=== PATIENT | male | born 1970 | race Caucasian/White ===

== ENCOUNTER → 2017-03-21 | Outpatient (REF) | payer OTHER, MEDICAID ==
[2017-03-21 16:18] LABS: ALBUMIN 3.9 GM/DL (3.2-5.2); ALBUMIN/GLOBULIN RATIO 1.26 (1.00-1.93); ALKALINE PHOSPHATASE 53 U/L (45-117); ALT/SGPT 21 U/L (12-78); ANION GAP 8 MEQ/L (8-16); AST/SGOT 14 U/L (15-37); BILIRUBIN,TOTAL 0.6 MG/DL (0.2-1.0); BLOOD UREA NITROGEN 14 MG/DL (7-18); CALCIUM LEVEL 9.4 MG/DL (8.5-10.1); CARBON DIOXIDE LEVEL 25 MEQ/L (21-32); CHLORIDE LEVEL 104 MEQ/L (98-107); CHOLESTEROL LEVEL 210 MG/DL (<200); CREATININE FOR GFR 0.88 MG/DL (0.70-1.30); GLOMERULAR FILTRATION RATE > 60.0 (>60); GLUCOSE, FASTING 92 MG/DL (70-105); POTASSIUM SERUM 4.2 MEQ/L (3.5-5.1); SODIUM LEVEL 137 MEQ/L (136-145); TRIGLYCERIDES LEVEL 93 MG/DL (<150)
== END ==
LOC: M SFHCLACO 08:59
PROVIDERS: ATTEND Physician Assistant
DX: I10 Essential (primary) hypertension (principal); E78.2 Mixed hyperlipidemia

== ENCOUNTER → 2017-12-13 | Outpatient (CLI) | payer OTHER | LOC: M LRY 14:16 | DX: S82.52XA Displaced fracture of medial malleolus of left tibia, initial encounter for closed fracture (principal); X58.XXXA Exposure to other specified factors, initial encounter; Y93.9 Activity, unspecified; Y92.9 Unspecified place or not applicable | CPT/HCPCS: 73610 ==

== ENCOUNTER → 2017-12-15 | Outpatient (CLI) | payer OTHER | LOC: M EKG 11:47 | DX: Z01.810 Encounter for preprocedural cardiovascular examination (principal) ==

== ENCOUNTER 2017-12-24 06:46 | Emergency (ER) | payer OTHER ==
[2017-12-24] MEDS: PERCOCET 5MG/325MG TAB PO (07:23)
== END 2017-12-24 08:53 | disposition home or self-care (01) ==
LOC: M ED 06:46
DX: Z46.89 Encounter for fitting and adjustment of other specified devices (principal); M79.662 Pain in left lower leg; I10 Essential (primary) hypertension; J45.909 Unspecified asthma, uncomplicated; F17.210 Nicotine dependence, cigarettes, uncomplicated; Z79.899 Other long term (current) drug therapy
CPT/HCPCS: 73600

== ENCOUNTER → 2018-02-08 | Outpatient (REF) | payer BC ==
[2018-02-08 20:24] LABS: ALBUMIN 4.1 GM/DL (3.2-5.2); ALBUMIN/GLOBULIN RATIO 1.17 (1.00-1.93); ALKALINE PHOSPHATASE 60 U/L (45-117); ALT/SGPT 29 U/L (12-78); ANION GAP 10 MEQ/L (8-16); AST/SGOT 15 U/L (7-37); BILIRUBIN,TOTAL 0.7 MG/DL (0.2-1.0); BLOOD UREA NITROGEN 9 MG/DL (7-18); CALCIUM LEVEL 9.3 MG/DL (8.5-10.1); CARBON DIOXIDE LEVEL 26 MEQ/L (21-32); CHLORIDE LEVEL 104 MEQ/L (98-107); CHOLESTEROL LEVEL 248 MG/DL (<200); CREATININE FOR GFR 0.94 MG/DL (0.70-1.30); FREE T4 0.99 NG/DL (0.76-1.46); GLOMERULAR FILTRATION RATE > 60.0 (>60); GLUCOSE, FASTING 94 MG/DL (70-100); HDL CHOLESTEROL 50 MG/DL (>40); LDL CHOLESTEROL 142.6 MG/DL (<100); NON-HDL-C 198 MG/DL; POTASSIUM SERUM 4.6 MEQ/L (3.5-5.1); SODIUM LEVEL 140 MEQ/L (136-145); TOTAL PROTEIN 7.6 GM/DL (6.4-8.2); TRIGLYCERIDES LEVEL 277 MG/DL (<150)
== END ==
LOC: M SFHCADAM 11:10
DX: E78.2 Mixed hyperlipidemia (principal)

== ENCOUNTER → 2019-09-26 | Outpatient (CLI) | payer BC ==
[~2019-09-26] MED LIST: FLUO20TA28 PO; LISI-542 PO; VENTAER IN; ZYRT10CA PO
--- NOTE | 2019-09-26 13:57 | REPVR ---
PROCEDURE INFORMATION: Exam: MR Head Without Contrast Exam date and time: 09/26/2019 12:45 PM Age: 49 years old Clinical indication: Speech disturbance; Patient HX: Occipital QUINTANILLA, slurred speech, unsteady gait TECHNIQUE: Imaging protocol: MR of the head without contrast. COMPARISON: No relevant prior studies available. FINDINGS: Brain: There is a 3 mm focus of low signal abnormality in the high right parietal lobe which may represent a small focus of old hemorrhage, cannot exclude small underlying vascular lesion. Ventricles: Normal. No ventriculomegaly. Bones/joints: Unremarkable. Soft tissues: Unremarkable. Sinuses: Normal as visualized. No acute sinusitis. Mastoid air cells: Normal as visualized. No mastoid effusion. Orbits: Unremarkable. IMPRESSION: No acute intracranial abnormality identified. Please refer to incidental findings in body of report. Electronically signed by: Gabe Alberto On 09/26/2019 13:56:56 PM
== END ==
LOC: M RAD 12:18
PROVIDERS: ATTEND Family Medicine
DX: R51 Headache (principal); R47.81 Slurred speech; R26.89 Other abnormalities of gait and mobility; G93.9 Disorder of brain, unspecified

== ENCOUNTER → 2019-09-26 | Outpatient (REF) | payer BC ==
[2019-09-26 13:21] LABS: HEMATOCRIT 46.1 % (42.0-52.0); HEMOGLOBIN 15.2 g/dl (13.5-17.5); MEAN CORPUSCULAR HEMOGLOBIN 30.7 pg (27.0-33.0); MEAN CORPUSCULAR VOLUME 93.1 fl (80.0-96.0); PLATELET COUNT, AUTOMATED 223 10^3/uL (150-450); RED BLOOD COUNT 4.95 10^6/uL (4.30-6.10)
[2019-09-26 13:28] LABS: ALBUMIN 3.9 GM/DL (3.2-5.2); ALT/SGPT 20 U/L (12-78); BILIRUBIN,TOTAL 0.5 MG/DL (0.2-1.0); BLOOD UREA NITROGEN 19 MG/DL (7-18); CALCIUM LEVEL 9.2 MG/DL (8.5-10.1); CARBON DIOXIDE LEVEL 27 MEQ/L (21-32); CHLORIDE LEVEL 107 MEQ/L (98-107); CHOLESTEROL LEVEL 211 MG/DL (<200); CHOLESTEROL RISK RATIO 5.146 (<5); CREATININE FOR GFR 0.86 MG/DL (0.70-1.30); FREE T4 1.13 NG/DL (0.76-1.46); GLOMERULAR FILTRATION RATE > 60.0 (>56); GLUCOSE, FASTING 107 MG/DL (70-100); HDL CHOLESTEROL 41 MG/DL (>40); LDL CHOLESTEROL 124 MG/DL (<100); NON-HDL-C 170 MG/DL; POTASSIUM SERUM 4.2 MEQ/L (3.5-5.1); SODIUM LEVEL 139 MEQ/L (136-145); THYROID STIMULATING HORMONE 0.284 uIU/ML (0.358-3.740); TRIGLYCERIDES LEVEL 230 MG/DL (<150)
== END ==
LOC: M SFHCADAM 10:36
PROVIDERS: ATTEND Family Medicine
DX: F32.9 Major depressive disorder, single episode, unspecified (principal); E78.2 Mixed hyperlipidemia; Z12.5 Encounter for screening for malignant neoplasm of prostate
CPT/HCPCS: 80053; 80061; 84439; 84443; 85027; G0103

== ENCOUNTER → 2020-07-20 | Outpatient (CLI) | payer SELFPAY | LOC: M LABSMTC 11:27 | PROVIDERS: ATTEND Pediatrics | DX: Z20.828 Contact with and (suspected) exposure to other viral communicable diseases (principal) ==

== ENCOUNTER 2020-08-11 17:28 | Emergency (ER) | payer BC, SELFPAY ==
[~2020-08-11] VITALS: Ht 175.3 cm; Wt 98.5 kg
[2020-08-11] MEDS ORDERED: VITMTA PO (17:43)
[2020-08-11] MEDS ORDERED: KP F1200 PO (17:43)
[2020-08-11 18:31] LABS: BASO # 0.1 10^3/uL (0.0-0.2); BASO % 1.1 % (0.0-1.0); EOS # 0.2 10^3/uL (0.0-0.5); EOS % 2.9 % (0.0-3.0); HEMATOCRIT 47.3 % (42.0-52.0); HEMOGLOBIN 16.3 g/dl (13.5-17.5); LYMPH # 2.8 10^3/uL (1.5-5.0); LYMPH % 38.1 % (24.0-44.0); MEAN CORPUSCULAR HEMOGLOBIN 31.9 pg (27.0-33.0); MEAN CORPUSCULAR HGB CONC 34.5 g/dl (32.0-36.5); MEAN CORPUSCULAR VOLUME 92.6 fl (80.0-96.0); MONO # 0.6 10^3/uL (0.0-0.8); NEUTROPHILS # 3.6 10^3/uL (1.5-8.5); NEUTROPHILS % 49.6 % (36.0-66.0); PLATELET COUNT, AUTOMATED 268 10^3/uL (150-450); RED BLOOD COUNT 5.11 10^6/uL (4.30-6.10); WHITE BLOOD COUNT 7.2 10^3/uL (4.0-10.0)
[2020-08-11 19:05] LABS: BLOOD UREA NITROGEN 18 MG/DL (7-18); CALCIUM LEVEL 8.8 MG/DL (8.5-10.1); CARBON DIOXIDE LEVEL 24 MEQ/L (21-32); CHLORIDE LEVEL 108 MEQ/L (98-107); CK-MB VALUE MASS < 1.0 NG/ML (<3.6); CPK CREATINE PHOSPHOKINASE 100 U/L (39-308); CREATININE FOR GFR 0.96 MG/DL (0.70-1.30); FREE T4 1.12 NG/DL (0.76-1.46); GLOMERULAR FILTRATION RATE > 60.0 (>56); GLUCOSE, FASTING 96 MG/DL (70-100); POTASSIUM SERUM 4.2 MEQ/L (3.5-5.1); SODIUM LEVEL 137 MEQ/L (136-145); THYROID STIMULATING HORMONE 0.353 uIU/ML (0.358-3.740); TROPONIN I < 0.02 NG/ML (< 0.10)
--- NOTE | 2020-08-11 19:06 | REP ---
INDICATION: cough chronic. COMPARISON: PA and lateral chest dated 06/23/2009. TECHNIQUE: Two AP views of the chest performed portably with the patient upright. FINDINGS: The lung barahona are clear. Cardiac size is normal. The margarito, mediastinum and skeletal structures are unremarkable. IMPRESSION: Essentially negative portable chest There is no interval change. <Electronically signed by Edi Trinidad > 08/11/20 [id number]
[2020-08-11 19:51] VITALS: BP 116/72
--- NOTE | 2020-08-12 07:51 | ECGEPIP ---
[facility] - ED Test Date: 2020-08-11 Pat Name: JOAN MCBRIDE Department: Room: - Gender: Male Signwriter: : [id number] Requested By: Sohan Peralta Order Number: [id number] Reading MD: Sohan Whitlock Measurements Intervals [place] Rate: 81 P: 73 KS: 146 QRS: 68 QRSD: 101 T: 58 QT: 345 QTc: 402 Interpretive Statements SINUS RHYTHM MODERATE INTRAVENTRICULAR CONDUCTION DELAY NONSPECIFIC T-WAVE ABNORMALITY SIMILAR TO 12/15/17 Electronically Signed on 08-12-2020 7:51:32 EST by Sohan Whitlock
== END 2020-08-11 19:53 | disposition home or self-care (01) ==
LOC: M ED 17:28
DX: R53.83 Other fatigue (principal); R61 Generalized hyperhidrosis; R51.9 Headache, unspecified; I10 Essential (primary) hypertension; J45.909 Unspecified asthma, uncomplicated; F17.200 Nicotine dependence, unspecified, uncomplicated; Z79.899 Other long term (current) drug therapy
CPT/HCPCS: 71045; 80048; 82550; 82553; 84439; 84443; 84484; 85025; 99284; U0003

== ENCOUNTER → 2020-08-14 | Outpatient (CLI) | payer BC ==
[~2020-08-14] MED LIST changes: +KP F1200 PO; +VITMTA PO
--- NOTE | 2020-08-17 08:51 | ECHO ---
DATE OF PROCEDURE: 08/14/2020 Age: 50 Gender: Male Height: 69 inches Weight: 210 pounds. Body surface area: 2.11 m2 PATIENT LOCATION: Outpatient. REFERRING PHYSICIAN: BENI Fuchs. INDICATION: Chest pain. MEASUREMENTS: 2D Measurements: RV 4.2 cm LV 4.4 cm Septum 1.0 cm Posterior wall 1.0 cm Aortic Root 3.2 cm LA 3.9 cm LVEF 75% Doppler Measurements: AV 1.38 m/s LVOT 1.3 m/s MV-E 80, A 69, E/A ratio 1.2 Early mitral deceleration time 183 msec E prime medial 9.3, A prime medial 9.9, E prime lateral 11.6 Average E/E prime ratio 6.7/PCWP 10.2 mmHg PV 0.8 m/s Pulmonary artery acceleration time 134 msec RVSP 22 mmHg IVC 1.7 cm COMMENTS: Normal sinus rhythm without intraventricular conduction disturbance. M-mode and two-dimensional echocardiography was performed with pulse, continuous wave, color flow, and tissue Doppler studies. Normal left ventricular size, wall thickness, and wall motion. Normal left atrial size and Doppler assessment of LV diastolic function and estimated mean left atrial pressure. Right heart chamber sizes upper limits of normal with normal wall motion and estimated pulmonary arterial pressure. Normal IVC size and collapse against an elevated central venous pressure. Normal aortic dimensions. Marginally thickened three equal size cusps of the aortic valve with normal valvular function. Normal appearing and functioning mitral valve. Normal appearing and functioning tricuspid valve with trace insufficiency. No apparent intracardiac mass or pericardial effusion. Unable to account for the patients chest pain based on this examination. MTDD
== END ==
LOC: M CARPUL 09:14
PROVIDERS: ATTEND Physician Assistant
DX: R07.9 Chest pain, unspecified (principal)

== ENCOUNTER 2020-08-26 10:56 | Emergency (ER) | payer OTHER, BC ==
[~2020-08-26] VITALS: Ht 172.7 cm; Wt 92.8 kg
[2020-08-26] MEDS ORDERED: IBUP-1022 PO (11:12)
--- NOTE | 2020-08-26 11:41 | REP ---
INDICATION: trauma, twisted. COMPARISON: None. TECHNIQUE: AP, lateral, bilateral oblique and sunrise views. FINDINGS: Advanced tricompartmental osteoarthritic degenerative changes and evidence for prior ACL repair noted. No obvious acute fracture or dislocation. Lateral view cannot exclude joint/suprapatellar effusion. IMPRESSION: Advanced degenerative changes. Cannot exclude effusion. No obvious acute fracture. <Electronically signed by Jarrod Holly > 08/26/20 [id number]
[2020-08-26 12:36] VITALS: BP 118/58
== END 2020-08-26 12:49 | disposition home or self-care (01) ==
LOC: M ED 10:56
DX: S83.92XA Sprain of unspecified site of left knee, initial encounter (principal); M25.462 Effusion, left knee; X50.1XXA Overexertion from prolonged static or awkward postures, initial encounter; Y92.89 Other specified places as the place of occurrence of the external cause; Y93.9 Activity, unspecified; Y99.0 Civilian activity done for income or pay; I10 Essential (primary) hypertension; J45.909 Unspecified asthma, uncomplicated; F17.200 Nicotine dependence, unspecified, uncomplicated; Z79.899 Other long term (current) drug therapy

== ENCOUNTER → 2021-04-09 | Outpatient (REF) | payer OTHER ==
[~2021-04-09] MED LIST changes: +FLUTISP; +IBUP-1022 PO; -LISI-542 PO; +LISI-898 PO; +LISI20TA33; +PRED20TA PO
[2021-04-09 18:36] LABS: ALT/SGPT 30 U/L (12-78); BLOOD UREA NITROGEN 12 MG/DL (7-18); CALCIUM LEVEL 9.4 MG/DL (8.5-10.1); CARBON DIOXIDE LEVEL 24 MEQ/L (21-32); CHLORIDE LEVEL 107 MEQ/L (98-107); CHOLESTEROL LEVEL 224 MG/DL (<200); CHOLESTEROL RISK RATIO 3.862 (<5); CREATININE FOR GFR 0.87 MG/DL (0.70-1.30); GLOMERULAR FILTRATION RATE > 60.0 (>56); GLUCOSE, FASTING 84 MG/DL (70-100); HDL CHOLESTEROL 58 MG/DL (>40); LDL CHOLESTEROL 129 MG/DL (<100); NON-HDL-C 166 MG/DL; SODIUM LEVEL 139 MEQ/L (136-145); TOTAL PROTEIN 7.1 GM/DL (6.4-8.2); TRIGLYCERIDES LEVEL 184 MG/DL (<150)
== END ==
LOC: M SFHCADAM 15:54
PROVIDERS: ATTEND Family Medicine
DX: E78.2 Mixed hyperlipidemia (principal); I10 Essential (primary) hypertension; Z12.5 Encounter for screening for malignant neoplasm of prostate

== ENCOUNTER 2021-04-19 07:31 | Emergency (ER) | payer OTHER ==
[~2021-04-19] VITALS: Ht 175.3 cm; Wt 95.9 kg
[~2021-04-19 07:31] MED LIST changes: -FLUTISP; -LISI20TA33; -PRED20TA PO
[2021-04-19] MEDS ORDERED: LISI20TA33 (08:14)
[2021-04-19] MEDS ORDERED: FLUTISP (08:14)
--- NOTE | 2021-04-19 08:59 | REP ---
INDICATION: SOB COMPARISON: 08/11/2020 TECHNIQUE: Portable AP view of the chest FINDINGS: The mediastinum and cardiac silhouette are stable and within normal limits for portable technique. The lung barahona are clear without acute consolidation, effusion, or pneumothorax. Skeletal structures are intact. IMPRESSION: No acute cardiopulmonary process appreciated. <Electronically signed by Jarrod Holly > 04/19/21 [id number]
[2021-04-19] MEDS ORDERED: PRED20TA PO (09:24)
[2021-04-19 10:14] VITALS: BP 113/59
== END 2021-04-19 10:24 | disposition home or self-care (01) ==
LOC: M ED 07:31 → EDBD 07:31 → M ED 10:24
DX: J45.901 Unspecified asthma with (acute) exacerbation (principal); I10 Essential (primary) hypertension; F32.9 Major depressive disorder, single episode, unspecified; F17.200 Nicotine dependence, unspecified, uncomplicated; Z79.899 Other long term (current) drug therapy

== ENCOUNTER → 2021-09-15 | Outpatient (REF) | payer OTHER ==
[~2021-09-15] MED LIST changes: +FLUTISP; -LISI-898 PO; +LISI20TA33; +LISI5TAB11 PO; +PRED20TA PO
[2021-09-15 13:07] LABS: HEMATOCRIT 46.2 % (42.0-52.0); HEMOGLOBIN 15.8 g/dl (13.5-17.5); MEAN CORPUSCULAR HEMOGLOBIN 31.7 pg (27.0-33.0); MEAN CORPUSCULAR HGB CONC 34.2 g/dl (32.0-36.5); MEAN CORPUSCULAR VOLUME 92.6 fl (80.0-96.0); PLATELET COUNT, AUTOMATED 272 10^3/uL (150-450); RED BLOOD COUNT 4.99 10^6/uL (4.30-6.10); WHITE BLOOD COUNT 6.1 10^3/uL (4.0-10.0)
[2021-09-15 14:56] LABS: ALT/SGPT 34 U/L (12-78); BILIRUBIN,TOTAL 0.7 MG/DL (0.2-1.0); BLOOD UREA NITROGEN 14 MG/DL (7-18); CALCIUM LEVEL 9.3 MG/DL (8.5-10.1); CARBON DIOXIDE LEVEL 28 MEQ/L (21-32); CHLORIDE LEVEL 103 MEQ/L (98-107); CHOLESTEROL LEVEL 218 MG/DL (<200); CHOLESTEROL RISK RATIO 3.694 (<5); CREATININE FOR GFR 0.96 MG/DL (0.70-1.30); FREE T4 1.09 NG/DL (0.76-1.46); GLOMERULAR FILTRATION RATE > 60.0 (>56); GLUCOSE, FASTING 101 MG/DL (70-100); HDL CHOLESTEROL 59 MG/DL (>40); LDL CHOLESTEROL 124 MG/DL (<100); NON-HDL-C 159 MG/DL; POTASSIUM SERUM 4.8 MEQ/L (3.5-5.1); SODIUM LEVEL 137 MEQ/L (136-145); THYROID STIMULATING HORMONE 0.228 uIU/ML (0.358-3.740); TRIGLYCERIDES LEVEL 177 MG/DL (<150)
== END ==
LOC: M SFHCADAM 08:46
PROVIDERS: ATTEND Family Medicine
DX: I11.9 Hypertensive heart disease without heart failure (principal); F41.9 Anxiety disorder, unspecified

== ENCOUNTER → 2022-09-14 | Outpatient (REF) | payer OTHER ==
[2022-09-14 17:20] LABS: ALBUMIN 4.1 G/DL (3.2-5.2); ALKALINE PHOSPHATASE 62 U/L (46-116); ALT/SGPT 22 U/L (7.0-40); AST/SGOT 17 U/L (<34); BLOOD UREA NITROGEN 14 MG/DL (9-23); CALCIUM LEVEL 9.9 MG/DL (8.5-10.1); CARBON DIOXIDE LEVEL 28 MMOL/L (20-31); CHLORIDE LEVEL 104 MMOL/L (98-107); CHOLESTEROL LEVEL 243 MG/DL (<200); CREATININE FOR GFR 0.82 MG/DL (0.70-1.30); FREE T4 1.06 NG/DL (0.89-1.76); GLOMERULAR FILTRATION RATE > 60.0 (>56); GLUCOSE, FASTING 89 MG/DL (60-100); HDL CHOLESTEROL 65.6 MG/DL (>40); LDL CHOLESTEROL 139.4 MG/DL (<100); NON-HDL-C 177 MG/DL; POTASSIUM SERUM 4.5 MMOL/L (3.5-5.1); SODIUM LEVEL 138 MMOL/L (136-145); THYROID STIMULATING HORMONE 0.231 uIU/ML (0.55-4.78); TRIGLYCERIDES LEVEL 190 MG/DL (<150)
== END ==
LOC: M SFHCADAM 11:34
PROVIDERS: ATTEND Family Medicine
DX: I11.9 Hypertensive heart disease without heart failure (principal); F41.9 Anxiety disorder, unspecified; E78.2 Mixed hyperlipidemia; Z12.5 Encounter for screening for malignant neoplasm of prostate

== ENCOUNTER → 2022-10-25 | Outpatient (CLI) | payer OTHER | LOC: M RAD 13:24 | PROVIDERS: ATTEND Family Medicine | DX: Z12.2 Encounter for screening for malignant neoplasm of respiratory organs (principal); F17.209 Nicotine dependence, unspecified, with unspecified nicotine-induced disorders ==

== ENCOUNTER 2023-01-20 11:32 | Day surgery (SDC) | payer OTHER ==
[~2023-01-20] VITALS: Ht 175.3 cm; Wt 87.2 kg
[~2023-01-20 11:32] MED LIST changes: +CETI-24 PO; +FLUO10CA18 PO; +FLUT50SP17; -FLUTISP; +LIDOCAINE 2% 100MG/5ML SDV (FOR ANES.) As Ordered ONE; -LISI20TA33; +LISI20TA33 PO; +NS 1,000 ML IV ONE; +OMEP40CA5 PO; +fentaNYL 100 MCG/2 ML INJECTION As Ordered ONE; +propofoL 200 MG/20 ML VIAL As Ordered ONE
[2023-01-20] MEDS ORDERED: propofoL 200 MG/20 ML VIAL As Ordered ONE (12:32)
[2023-01-20 13:00] VITALS: BP 117/71; O2SAT 94
[2023-02-14] MEDS ORDERED: FISH1CAP26 FT (10:15)
== END 2023-01-20 13:14 | disposition home or self-care (01) ==
LOC: M OPP 11:32
PROVIDERS: ATTEND Internal Medicine Gastroenterology
DX: K22.70 Barrett's esophagus without dysplasia (principal); K22.2 Esophageal obstruction; K29.70 Gastritis, unspecified, without bleeding; F17.200 Nicotine dependence, unspecified, uncomplicated; Z79.51 Long term (current) use of inhaled steroids; Z79.899 Other long term (current) drug therapy
CPT/HCPCS: 43239; 88305; J3010

== ENCOUNTER → 2023-04-21 | Outpatient (CLI) | payer OTHER ==
[~2023-04-21] MED LIST changes: +FISH1CAP26 FT; -LIDOCAINE 2% 100MG/5ML SDV (FOR ANES.) As Ordered ONE; -NS 1,000 ML IV ONE; +OMEG10002 PO; -fentaNYL 100 MCG/2 ML INJECTION As Ordered ONE; -propofoL 200 MG/20 ML VIAL As Ordered ONE
== END ==
LOC: M ONCR 14:50
PROVIDERS: ATTEND General Practice
DX: C15.5 Malignant neoplasm of lower third of esophagus (principal); Z71.6 Tobacco abuse counseling; F17.210 Nicotine dependence, cigarettes, uncomplicated; Z79.51 Long term (current) use of inhaled steroids; Z79.899 Other long term (current) drug therapy; Z71.2 Person consulting for explanation of examination or test findings

== ENCOUNTER → 2023-04-24 | Outpatient (CLI) | payer OTHER ==
[~2023-04-24] VITALS: Ht 175.3 cm; Wt 86.8 kg
[~2023-04-24] MED LIST changes: +LIDOCAINE W/EPINEPHRINE 1% 20ML VIAL As Ordered ONE; +MIDAZOLAM INJ 2MG/2ML VIAL As Ordered ONE; +NS 1,000 ML IV SCH; +ceFAZolin 2 GM/D5W 50 ML IV BAG As Ordered ONE; +ceFAZolin SOD 2 GM in IV 1 EA IV ONE; +fentaNYL 100 MCG/2 ML INJECTION As Ordered ONE
[2023-04-24 07:15] VITALS: TEMP 98.6
[2023-04-24 11:05] VITALS: BP 109/59; O2SAT 97
== END ==
LOC: M IRPRO 06:53
PROVIDERS: ATTEND Specialist
DX: C15.9 Malignant neoplasm of esophagus, unspecified (principal)
CPT/HCPCS: 36561; 99152; 99153; J0690; J2250; J3010

== ENCOUNTER → 2023-06-27 | Outpatient (RCR) | payer OTHER ==
[~2023-06-27] MED LIST changes: +LIDO30CR18 TOP; -LIDOCAINE W/EPINEPHRINE 1% 20ML VIAL As Ordered ONE; +LORA1TAB23 PO; -MIDAZOLAM INJ 2MG/2ML VIAL As Ordered ONE; -NS 1,000 ML IV SCH; +ONDA-84 PO; +PROC10TA5 PO; -ceFAZolin 2 GM/D5W 50 ML IV BAG As Ordered ONE; -ceFAZolin SOD 2 GM in IV 1 EA IV ONE; -fentaNYL 100 MCG/2 ML INJECTION As Ordered ONE
== END ==
LOC: M ONCR 05-29 08:54
PROVIDERS: ATTEND General Practice
DX: Z51.0 Encounter for antineoplastic radiation therapy (principal); C15.5 Malignant neoplasm of lower third of esophagus

== ENCOUNTER 2023-07-01 18:05 | Inpatient (IN) | payer OTHER ==
[~2023-07-01] VITALS: Ht 175.3 cm; Wt 80.1 kg
[2023-07-01 19:11] LABS: BASO % 0.6 % (0.0-1.0); EOS % 1.9 % (0.0-3.0); HEMATOCRIT 34.8 % (42.0-52.0); HEMOGLOBIN 12.4 g/dl (13.5-17.5); LYMPH # 0.2 10^3/uL (1.5-5.0); LYMPH % 12.4 % (24.0-44.0); MEAN CORPUSCULAR HEMOGLOBIN 32.2 pg (27.0-33.0); MEAN CORPUSCULAR HGB CONC 35.6 g/dl (32.0-36.5); MEAN CORPUSCULAR VOLUME 90.4 fl (80.0-96.0); MONO # 0.2 10^3/uL (0.0-0.8); MONO % 10.6 % (2.0-8.0); NEUTROPHILS # 1.2 10^3/uL (1.5-8.5); NEUTROPHILS % 73.9 % (36.0-66.0); PLATELET COUNT, AUTOMATED 134 10^3/uL (150-450); RED BLOOD COUNT 3.85 10^6/uL (4.30-6.10); WHITE BLOOD COUNT 1.6 10^3/uL (4.0-10.0)
[2023-07-01 19:35] LABS: BLOOD UREA NITROGEN 12 MG/DL (9-23); CALCIUM LEVEL 7.9 MG/DL (8.5-10.1); CARBON DIOXIDE LEVEL 22 MMOL/L (20-31); CHLORIDE LEVEL 102 MMOL/L (98-107); CREATININE FOR GFR 0.57 MG/DL (0.70-1.30); GLOMERULAR FILTRATION RATE > 60.0 (>56); GLUCOSE, FASTING 96 MG/DL (60-100); MAGNESIUM LEVEL 1.9 MG/DL (1.8-2.4); POTASSIUM SERUM 4.1 MMOL/L (3.5-5.1); SODIUM LEVEL 133 MMOL/L (136-145)
[2023-07-01 19:38] LABS: FREE T4 1.07 NG/DL (0.89-1.76); THYROID STIMULATING HORMONE 0.117 uIU/ML (0.55-4.78)
[2023-07-01] MEDS ORDERED: LORA1TAB23 PO (20:33)
[2023-07-01] MEDS ORDERED: HOME MED LIST COMPLETE! XX SCH (20:35)
[2023-07-01 20:36] LABS: RSV AMPLIFICATION NEGATIVE (NEGATIVE)
[2023-07-01] MEDS ORDERED: LORazepam 1 MG TAB PO PRN (22:40)
[2023-07-01] MEDS ORDERED: EMLA CREAM 5GM TUBE (LIDOCAINE/PRILOCAINE) TOP SCH (22:40)
[2023-07-01] MEDS ORDERED: MOM 30ML SUSPENSION UDC PO PRN (22:40)
[2023-07-01] MEDS ORDERED: ALBUTEROL 90 MCG/ACT 8GM HFA INHALER INH PRN (22:40)
[2023-07-01] MEDS ORDERED: ACETAMINOPHEN TAB 650MG DOSE (2X325MG) PO PRN (22:40)
[2023-07-01] MEDS ORDERED: MAALOX 30 ML SUSP *UDC PO PRN (22:40)
[2023-07-01] MEDS ORDERED: FLUTICASONE PROP 0.05% NASAL SPRAY 16 GM (FLONASE) PRN (22:40)
[2023-07-01] MEDS ORDERED: NS 1,000 ML IV SCH (22:50)
[2023-07-01] MEDS ORDERED: MIRALAX *UNIT DOSE* 17GM PACKET PO PRN (23:30)
[2023-07-01] MEDS: ONDANSETRON 4MG TAB PO SCH (23:55)
[2023-07-02] MEDS: PROCHLORPERAZINE 5MG TAB PO SCH ×2 (00:01→06:39)
[2023-07-02 00:30] VITALS: BP 125/75; TEMP 98.2; O2SAT 97
[2023-07-02 05:30] VITALS: BP_SYST 102; BP_SYST 92; BP_DIAS 63; BP_DIAS 65; TEMP 98.2; O2SAT 93
[2023-07-02 05:50] VITALS: BP 102/64
[2023-07-02 06:00] LABS: BASO % 1.4 % (0.0-1.0); EOS % 2.2 % (0.0-3.0); HEMATOCRIT 33.2 % (42.0-52.0); LYMPH # 0.3 10^3/uL (1.5-5.0); MEAN CORPUSCULAR HEMOGLOBIN 32.7 pg (27.0-33.0); MEAN CORPUSCULAR HGB CONC 36.1 g/dl (32.0-36.5); MEAN CORPUSCULAR VOLUME 90.5 fl (80.0-96.0); MONO # 0.2 10^3/uL (0.0-0.8); MONO % 11.5 % (2.0-8.0); NEUTROPHILS % 65.5 % (36.0-66.0); PLATELET COUNT, AUTOMATED 119 10^3/uL (150-450); RED BLOOD COUNT 3.67 10^6/uL (4.30-6.10); WHITE BLOOD COUNT 1.4 10^3/uL (4.0-10.0)
[2023-07-02] MEDS ORDERED: HEPARIN SOD (PORCINE) 5000UNITS/ML 1ML VIAL/SYRINGE SC SCH (06:00)
[2023-07-02 06:23] LABS: ALBUMIN 2.9 G/DL (3.2-5.2); ALKALINE PHOSPHATASE 72 U/L (46-116); ALT/SGPT 18 U/L (7.0-40); AST/SGOT 15 U/L (<34); BILIRUBIN,TOTAL 0.6 MG/DL (0.3-1.2); BLOOD UREA NITROGEN 10 MG/DL (9-23); CALCIUM LEVEL 8.3 MG/DL (8.5-10.1); CARBON DIOXIDE LEVEL 24 MMOL/L (20-31); CHLORIDE LEVEL 102 MMOL/L (98-107); CREATININE FOR GFR 0.57 MG/DL (0.70-1.30); GLOMERULAR FILTRATION RATE > 60.0 (>56); GLUCOSE, FASTING 94 MG/DL (60-100); MAGNESIUM LEVEL 1.9 MG/DL (1.8-2.4); SODIUM LEVEL 133 MMOL/L (136-145); TOTAL PROTEIN 5.6 G/DL (5.7-8.2)
[2023-07-02 06:25] LABS: NEUTROPHILS # 0.9 10^3/uL (1.5-8.5)
[2023-07-02] MEDS ORDERED: NS 1,000 ML IV ONE (08:15)
[2023-07-02] MEDS ORDERED: LISI5TAB11 PO ×2 (08:40→08:42)
[2023-07-02] MEDS ORDERED: SELF1KIT MC (08:41)
[2023-07-02 09:00] VITALS: BP 101/66
[2023-07-02] MEDS ORDERED: MULTIVITAMINS/MINERALS THERAP 1 TAB PO SCH (09:00)
[2023-07-02] MEDS ORDERED: FLUoxetine 10 MG CAP PO SCH (09:00)
[2023-07-02] MEDS ORDERED: CETIRIZINE (ZyrTEC) 10 MG TAB PO SCH (09:00)
[2023-07-02] MEDS ORDERED: OMEGA-3 1000MG CAPSULE PO SCH (09:00)
[2023-07-02] MEDS: ONDANSETRON 4MG TAB PO SCH (09:21)
[2023-07-02 10:27] VITALS: BP 112/67
== END 2023-07-02 10:44 | disposition home or self-care (01) | DRG 422 ==
LOC: M ED 18:05 → M ED INP 22:58 → ENRESERV 23:48 → M MSPAV 07-02 00:32
PROVIDERS: ADMIT Family Medicine; ATTEND General Practice
DX: E86.0 Dehydration (principal); C15.9 Malignant neoplasm of esophagus, unspecified; D61.810 Antineoplastic chemotherapy induced pancytopenia; E87.1 Hypo-osmolality and hyponatremia; I10 Essential (primary) hypertension; K59.00 Constipation, unspecified; R53.1 Weakness; E07.9 Disorder of thyroid, unspecified; E78.5 Hyperlipidemia, unspecified; J45.909 Unspecified asthma, uncomplicated; F32.A Depression, unspecified; F41.9 Anxiety disorder, unspecified; Z87.891 Personal history of nicotine dependence; Z79.899 Other long term (current) drug therapy; Z20.822 Contact with and (suspected) exposure to COVID-19

== ENCOUNTER 2023-07-03 08:24 | Outpatient (RCR) | payer OTHER ==
[~2023-07-03 08:24] MED LIST changes: +SELF1KIT MC
[2023-07-08] MEDS ORDERED: LIDO15SO2 PO (08:43)
== END 2023-07-27 ==
LOC: M ONCR 08:24
PROVIDERS: ATTEND General Practice
DX: Z51.0 Encounter for antineoplastic radiation therapy (principal); C15.5 Malignant neoplasm of lower third of esophagus

== ENCOUNTER → 2023-07-06 | Outpatient (REF) | payer OTHER ==
[2023-07-06 13:59] LABS: BASO % 1.3 % (0.0-1.0); EOS % 1.3 % (0.0-3.0); HEMATOCRIT 32.8 % (42.0-52.0); HEMOGLOBIN 11.5 g/dl (13.5-17.5); LYMPH # 0.5 10^3/uL (1.5-5.0); LYMPH % 22.8 % (24.0-44.0); MEAN CORPUSCULAR HEMOGLOBIN 32.3 pg (27.0-33.0); MEAN CORPUSCULAR HGB CONC 35.1 g/dl (32.0-36.5); MEAN CORPUSCULAR VOLUME 92.1 fl (80.0-96.0); MONO # 0.3 10^3/uL (0.0-0.8); MONO % 12.7 % (2.0-8.0); NEUTROPHILS # 1.4 10^3/uL (1.5-8.5); NEUTROPHILS % 61.5 % (36.0-66.0); PLATELET COUNT, AUTOMATED 179 10^3/uL (150-450); RED BLOOD COUNT 3.56 10^6/uL (4.30-6.10); WHITE BLOOD COUNT 2.3 10^3/uL (4.0-10.0)
[2023-07-06 14:09] LABS: BLOOD UREA NITROGEN 11 MG/DL (9-23); CALCIUM LEVEL 8.8 MG/DL (8.5-10.1); CARBON DIOXIDE LEVEL 26 MMOL/L (20-31); CHLORIDE LEVEL 101 MMOL/L (98-107); CREATININE FOR GFR 0.75 MG/DL (0.70-1.30); GLOMERULAR FILTRATION RATE > 60.0 (>56); GLUCOSE, FASTING 97 MG/DL (60-100); IRON (FE) 41 UG/DL (65-175); PERCENT SATURATION 15.8 % (19.7-50.0); POTASSIUM SERUM 4.4 MMOL/L (3.5-5.1); SODIUM LEVEL 135 MMOL/L (136-145); TOTAL IRON BINDING CAPACITY 259 UG/DL (250-425)
[2023-07-06 14:13] LABS: FOLATE > 24.0 NG/ML (>5.4); VITAMIN B12 LEVEL 1722 PG/ML (211-911)
== END ==
LOC: M SFHCADAM 08:36
PROVIDERS: ATTEND Physician Assistant
DX: D64.81 Anemia due to antineoplastic chemotherapy (principal)

== ENCOUNTER → 2023-08-02 | Outpatient (CLI) | payer OTHER ==
[~2023-08-02] MED LIST changes: -FLUT50SP17; +FLUTISP; +LIDO15SO2 PO; +TRAZ-252 PO
== END ==
LOC: M ONCR 10:06
PROVIDERS: ATTEND General Practice
DX: Z01.818 Encounter for other preprocedural examination (principal); C15.5 Malignant neoplasm of lower third of esophagus; G47.00 Insomnia, unspecified

== ENCOUNTER → 2023-11-03 | Outpatient (CLI) | payer OTHER ==
[~2023-11-03] MED LIST changes: -LIDO15SO2 PO; +LIDO15SO9 PO; +THERTAB19 PO
== END ==
LOC: M ONCR 08:49
PROVIDERS: ATTEND General Practice
DX: C15.5 Malignant neoplasm of lower third of esophagus (principal); F17.210 Nicotine dependence, cigarettes, uncomplicated; Z71.2 Person consulting for explanation of examination or test findings; Z79.51 Long term (current) use of inhaled steroids; Z79.620 Long term (current) use of immunosuppressive biologic; Z79.899 Other long term (current) drug therapy; Z90.49 Acquired absence of other specified parts of digestive tract; Z92.21 Personal history of antineoplastic chemotherapy; Z92.3 Personal history of irradiation

== ENCOUNTER → 2024-02-14 | Outpatient (REF) | payer OTHER ==
[~2024-02-14] MED LIST changes: +FLUO-290 PO; -FLUO10CA18 PO; +HYDR-3713 PO
[2024-02-14 19:09] LABS: HEMATOCRIT 36.7 % (42.0-52.0); HEMOGLOBIN 12.3 g/dl (13.5-17.5); MEAN CORPUSCULAR HEMOGLOBIN 31.5 pg (27.0-33.0); MEAN CORPUSCULAR HGB CONC 33.5 g/dl (32.0-36.5); MEAN CORPUSCULAR VOLUME 93.9 fl (80.0-96.0); PLATELET COUNT, AUTOMATED 324 10^3/uL (150-450); RED BLOOD COUNT 3.91 10^6/uL (4.30-6.10); WHITE BLOOD COUNT 8.8 10^3/uL (4.0-10.0)
[2024-02-14 19:12] LABS: ALBUMIN 3.4 G/DL (3.2-5.2); ALKALINE PHOSPHATASE 85 U/L (46-116); ALT/SGPT 15 U/L (7.0-40); AST/SGOT 11 U/L (<34); BILIRUBIN,TOTAL 0.5 MG/DL (0.3-1.2); BLOOD UREA NITROGEN 22 MG/DL (9-23); CALCIUM LEVEL 9.4 MG/DL (8.5-10.1); CARBON DIOXIDE LEVEL 27 MMOL/L (20-31); CHLORIDE LEVEL 105 MMOL/L (98-107); CHOLESTEROL LEVEL 150 MG/DL (<200); CHOLESTEROL RISK RATIO 3.12 (<5); CREATININE FOR GFR 1.11 MG/DL (0.70-1.30); GLOMERULAR FILTRATION RATE > 60.0 (>56); GLUCOSE, FASTING 73 MG/DL (60-100); POTASSIUM SERUM 4.4 MMOL/L (3.5-5.1); SODIUM LEVEL 138 MMOL/L (136-145); TOTAL PROTEIN 6.9 G/DL (5.7-8.2); TRIGLYCERIDES LEVEL 95 MG/DL (<150)
[2024-02-14 19:16] LABS: FREE T4 1.03 NG/DL (0.89-1.76); THYROID STIMULATING HORMONE 0.115 uIU/ML (0.55-4.78)
== END ==
LOC: M SFHCADAM 13:20
PROVIDERS: ATTEND Family Medicine
DX: I11.9 Hypertensive heart disease without heart failure (principal); C15.9 Malignant neoplasm of esophagus, unspecified; E78.2 Mixed hyperlipidemia

== ENCOUNTER → 2024-02-26 | Outpatient (CLI) | payer OTHER ==
[~2024-02-26] MED LIST changes: +GASTROGRAFIN SOLUTION 30ML As Ordered ONE; +ISOVUE-370 76% 100ML VIAL As Ordered ONE
== END ==
LOC: M RAD 09:08
PROVIDERS: ATTEND Specialist
DX: C15.9 Malignant neoplasm of esophagus, unspecified (principal)
CPT/HCPCS: 71260; 74177; Q9963; Q9967

== ENCOUNTER 2024-02-28 00:52 | Emergency (ER) | payer OTHER ==
[~2024-02-28] VITALS: Ht 175.3 cm; Wt 75.4 kg
[~2024-02-28 00:52] MED LIST changes: -GASTROGRAFIN SOLUTION 30ML As Ordered ONE; -ISOVUE-370 76% 100ML VIAL As Ordered ONE
[2024-02-28] MEDS: NS 1,000 ML IV ONE ×2 (01:50→03:40)
[2024-02-28 02:08] LABS: VENOUS BASE EXCESS 0.8 (-2.0-2.0); VENOUS HCO3 22.6 MMOL/L (23.0-27.0); VENOUS O2 SATURATION 97.1 % (60.0-80.0); VENOUS PARTIAL PRESSURE CO2 28.2 mmHg (38.0-50.0); VENOUS PARTIAL PRESSURE O2 83.3 mmHg (30.0-50.0); VENOUS PH 7.522 UNITS (7.330-7.430); VENOUS STANDARD HCO3 25.2 MMOL/L; VENOUS TOTAL CO2 23.5 MMOL/L (24.0-28.0)
[2024-02-28 02:14] LABS: BASO # 0.1 10^3/uL (0.0-0.2); BASO % 0.9 % (0.0-1.0); EOS # 0.2 10^3/uL (0.0-0.5); EOS % 1.6 % (0.0-3.0); HEMATOCRIT 33.6 % (42.0-52.0); LYMPH # 0.7 10^3/uL (1.5-5.0); LYMPH % 7.4 % (24.0-44.0); MEAN CORPUSCULAR HEMOGLOBIN 31.6 pg (27.0-33.0); MEAN CORPUSCULAR HGB CONC 35.7 g/dl (32.0-36.5); MEAN CORPUSCULAR VOLUME 88.4 fl (80.0-96.0); MONO # 0.9 10^3/uL (0.0-0.8); MONO % 9.7 % (2.0-8.0); NEUTROPHILS # 7.3 10^3/uL (1.5-8.5); NEUTROPHILS % 80.1 % (36.0-66.0); PLATELET COUNT, AUTOMATED 299 10^3/uL (150-450); WHITE BLOOD COUNT 9.1 10^3/uL (4.0-10.0)
[2024-02-28 02:26] LABS: INR 1.16; PARTIAL THROMBOPLASTIN TIME 36.2 SECONDS (24.8-34.2); PROTHROMBIN TIME 14.5 SECONDS (12.5-14.5)
[2024-02-28 02:42] LABS: C REACTIVE PROTEIN QUANTITATIV 12.8 MG/DL (<1.0)
[2024-02-28 02:44] LABS: ALBUMIN 3.2 G/DL (3.2-5.2); BILIRUBIN,DIRECT 0.3 MG/DL (<0.4); CALCIUM LEVEL 8.9 MG/DL (8.5-10.1); CREATININE FOR GFR 1.34 MG/DL (0.70-1.30); GLOMERULAR FILTRATION RATE 58.7 (>56); POTASSIUM SERUM 3.6 MMOL/L (3.5-5.1); TOTAL PROTEIN 6.4 G/DL (5.7-8.2)
[2024-02-28 03:07] VITALS: TEMP 100.3
[2024-02-28 03:31] LABS: APPEARANCE, URINE CLEAR (CLEAR); BACTERIA, URINE AUTO NEGATIVE (NEGATIVE); BILIRUBIN, URINE AUTO NEGATIVE (NEGATIVE); BLOOD, URINE BLOOD NEGATIVE (NEGATIVE); COLOR, URINE YELLOW (YELLOW); GLUCOSE, URINE (UA) AUTO NEGATIVE (NEGATIVE); KETONE, URINE AUTO NEGATIVE (NEGATIVE); LEUKOCYTE ESTERASE, URINE AUTO 3+ (NEGATIVE); NITRITE, URINE AUTO NEGATIVE (NEGATIVE); PROTEIN, URINE AUTO 1+ mg/dL (NEGATIVE); RBC, URINE AUTO 3 /HPF (0-3); SPECIFIC GRAVITY URINE AUTO 1.009 (1.002-1.035); SQUAMOUS EPITHELIAL CELL UR AU 0 /HPF (0-6); UROBILINOGEN, URINE AUTO 0.2 mg/dL (0.0-2.0); WBC, URINE AUTO 50 /HPF (0-3)
[2024-02-28 03:58] LABS: PROCALCITONIN 0.45 ng/ml
[2024-02-28 04:30] VITALS: BP 122/67
[2024-02-28 04:45] VITALS: O2SAT 98
== END 2024-02-28 05:09 | disposition home or self-care (01) ==
LOC: M ED 00:52
DX: R50.9 Fever, unspecified (principal); R53.1 Weakness; E86.0 Dehydration; N17.9 Acute kidney failure, unspecified; I10 Essential (primary) hypertension; C15.9 Malignant neoplasm of esophagus, unspecified; Z79.52 Long term (current) use of systemic steroids; Z79.811 Long term (current) use of aromatase inhibitors; Z79.83 Long term (current) use of bisphosphonates; Z79.899 Other long term (current) drug therapy

== ENCOUNTER → 2024-03-26 | Outpatient (REF) | payer OTHER ==
[2024-03-26 14:24] LABS: BASO # 0.1 10^3/uL (0.0-0.2); BASO % 1.4 % (0.0-1.0); EOS # 0.2 10^3/uL (0.0-0.5); EOS % 2.6 % (0.0-3.0); HEMATOCRIT 37.4 % (42.0-52.0); HEMOGLOBIN 12.5 g/dl (13.5-17.5); LYMPH # 1.8 10^3/uL (1.5-5.0); MEAN CORPUSCULAR HEMOGLOBIN 30.6 pg (27.0-33.0); MEAN CORPUSCULAR HGB CONC 33.4 g/dl (32.0-36.5); MEAN CORPUSCULAR VOLUME 91.7 fl (80.0-96.0); MONO # 0.6 10^3/uL (0.0-0.8); MONO % 8.1 % (2.0-8.0); NEUTROPHILS # 4.9 10^3/uL (1.5-8.5); NEUTROPHILS % 64.4 % (36.0-66.0); PLATELET COUNT, AUTOMATED 322 10^3/uL (150-450); RED BLOOD COUNT 4.08 10^6/uL (4.30-6.10); WHITE BLOOD COUNT 7.7 10^3/uL (4.0-10.0)
[2024-03-26 14:31] LABS: ALBUMIN 3.6 G/DL (3.2-5.2); ALKALINE PHOSPHATASE 87 U/L (46-116); ALT/SGPT 28 U/L (7.0-40); AST/SGOT 16 U/L (<34); BILIRUBIN,TOTAL 0.5 MG/DL (0.3-1.2); BLOOD UREA NITROGEN 23 MG/DL (9-23); CALCIUM LEVEL 9.6 MG/DL (8.5-10.1); CARBON DIOXIDE LEVEL 24 MMOL/L (20-31); CHLORIDE LEVEL 103 MMOL/L (98-107); CREATININE FOR GFR 1.12 MG/DL (0.70-1.30); GLOMERULAR FILTRATION RATE > 60.0 (>56); GLUCOSE, FASTING 110 MG/DL (60-100); POTASSIUM SERUM 4.5 MMOL/L (3.5-5.1); SODIUM LEVEL 133 MMOL/L (136-145); TOTAL PROTEIN 7.1 G/DL (5.7-8.2)
[2024-03-26 14:32] LABS: FREE T4 1.09 NG/DL (0.89-1.76); THYROID STIMULATING HORMONE 0.398 uIU/ML (0.55-4.78)
[2024-03-26 14:33] LABS: FREE T3 3.2 PG/ML (2.3-4.2)
== END ==
LOC: M LABDRWAD 13:57
PROVIDERS: ATTEND Specialist
DX: C15.9 Malignant neoplasm of esophagus, unspecified (principal)

== ENCOUNTER → 2024-05-02 | Outpatient (REF) | payer OTHER ==
[~2024-05-02] MED LIST changes: +POTA50TAB PO
[2024-05-02 17:56] LABS: BASO # 0.1 10^3/uL (0.0-0.2); BASO % 1.5 % (0.0-1.0); EOS # 0.3 10^3/uL (0.0-0.5); EOS % 7.1 % (0.0-3.0); HEMATOCRIT 34.6 % (42.0-52.0); LYMPH # 1.7 10^3/uL (1.5-5.0); LYMPH % 36.1 % (24.0-44.0); MEAN CORPUSCULAR HEMOGLOBIN 32.6 pg (27.0-33.0); MEAN CORPUSCULAR HGB CONC 34.7 g/dl (32.0-36.5); MONO # 0.4 10^3/uL (0.0-0.8); MONO % 8.7 % (2.0-8.0); NEUTROPHILS # 2.2 10^3/uL (1.5-8.5); NEUTROPHILS % 46.2 % (36.0-66.0); PLATELET COUNT, AUTOMATED 282 10^3/uL (150-450); RED BLOOD COUNT 3.68 10^6/uL (4.30-6.10); WHITE BLOOD COUNT 4.8 10^3/uL (4.0-10.0)
[2024-05-02 18:03] LABS: ALBUMIN 3.9 G/DL (3.2-5.2); ALKALINE PHOSPHATASE 73 U/L (46-116); ALT/SGPT 32 U/L (7.0-40); AST/SGOT 23 U/L (<34); BILIRUBIN,TOTAL 0.7 MG/DL (0.3-1.2); BLOOD UREA NITROGEN 12 MG/DL (9-23); CALCIUM LEVEL 8.6 MG/DL (8.5-10.1); CARBON DIOXIDE LEVEL 24 MMOL/L (20-31); CHLORIDE LEVEL 107 MMOL/L (98-107); CREATININE FOR GFR 0.91 MG/DL (0.70-1.30); GLOMERULAR FILTRATION RATE > 60.0 (>56); GLUCOSE, FASTING 82 MG/DL (60-100); IRON (FE) 75 UG/DL (65-175); MAGNESIUM LEVEL 1.7 MG/DL (1.8-2.4); PERCENT SATURATION 24.3 % (19.7-50.0); POTASSIUM SERUM 3.9 MMOL/L (3.5-5.1); SODIUM LEVEL 136 MMOL/L (136-145); TOTAL IRON BINDING CAPACITY 309 UG/DL (250-425); TOTAL PROTEIN 6.6 G/DL (5.7-8.2)
[2024-05-02 18:05] LABS: FERRITIN 264.7 NG/ML (10.5-307.3); FREE T3 3.1 PG/ML (2.3-4.2); FREE T4 1.21 NG/DL (0.89-1.76)
[2024-05-02 18:06] LABS: FOLATE 23.33 NG/ML (>5.4)
[2024-05-03 12:18] LABS: PHOSPHORUS LEVEL 1.3 MG/DL (2.5-4.9)
[2024-05-07 15:27] LABS: Methylmalonic Acid 145 nmol/L (55-335)
== END ==
LOC: M LABDRWAD 17:03
PROVIDERS: ATTEND Specialist
DX: C15.9 Malignant neoplasm of esophagus, unspecified (principal)

== ENCOUNTER → 2024-06-03 | Outpatient (REF) | payer OTHER ==
[2024-06-03 14:55] LABS: ALBUMIN 3.9 G/DL (3.2-5.2); ALKALINE PHOSPHATASE 71 U/L (46-116); ALT/SGPT 15 U/L (7.0-40); AST/SGOT 10 U/L (<34); BILIRUBIN,TOTAL 0.8 MG/DL (0.3-1.2); BLOOD UREA NITROGEN 13 MG/DL (9-23); CALCIUM LEVEL 8.9 MG/DL (8.5-10.1); CARBON DIOXIDE LEVEL 22 MMOL/L (20-31); CHLORIDE LEVEL 109 MMOL/L (98-107); CREATININE FOR GFR 0.81 MG/DL (0.70-1.30); GLOMERULAR FILTRATION RATE > 60.0 (>56); GLUCOSE, FASTING 82 MG/DL (60-100); POTASSIUM SERUM 3.7 MMOL/L (3.5-5.1); SODIUM LEVEL 136 MMOL/L (136-145); TOTAL PROTEIN 6.7 G/DL (5.7-8.2)
[2024-06-03 14:58] LABS: FREE T3 3.8 PG/ML (2.3-4.2); THYROID STIMULATING HORMONE 0.042 uIU/ML (0.55-4.78)
[2024-06-03 14:59] LABS: FREE T4 1.24 NG/DL (0.89-1.76)
[2024-06-03 15:17] LABS: BASO # 0.1 10^3/uL (0.0-0.2); BASO % 1.3 % (0.0-1.0); EOS # 0.3 10^3/uL (0.0-0.5); EOS % 4.7 % (0.0-3.0); HEMATOCRIT 37.1 % (42.0-52.0); HEMOGLOBIN 12.6 g/dl (13.5-17.5); LYMPH # 1.4 10^3/uL (1.5-5.0); LYMPH % 18.9 % (24.0-44.0); MEAN CORPUSCULAR HEMOGLOBIN 32.6 pg (27.0-33.0); MEAN CORPUSCULAR VOLUME 95.9 fl (80.0-96.0); MONO # 0.4 10^3/uL (0.0-0.8); MONO % 5.8 % (2.0-8.0); PLATELET COUNT, AUTOMATED 213 10^3/uL (150-450); RED BLOOD COUNT 3.87 10^6/uL (4.30-6.10); WHITE BLOOD COUNT 7.2 10^3/uL (4.0-10.0)
== END ==
LOC: M LABDRWAD 13:32
PROVIDERS: ATTEND Specialist
DX: C15.9 Malignant neoplasm of esophagus, unspecified (principal)

== ENCOUNTER 2024-06-06 15:18 | Emergency (ER) | payer OTHER ==
[2024-06-06 16:08] LABS: BASO # 0.1 10^3/uL (0.0-0.2); BASO % 0.6 % (0.0-1.0); EOS # 0.2 10^3/uL (0.0-0.5); EOS % 2.1 % (0.0-3.0); HEMOGLOBIN 14.2 g/dl (13.5-17.5); LYMPH # 1.1 10^3/uL (1.5-5.0); LYMPH % 10.8 % (24.0-44.0); MEAN CORPUSCULAR HEMOGLOBIN 32.9 pg (27.0-33.0); MEAN CORPUSCULAR HGB CONC 35.5 g/dl (32.0-36.5); MEAN CORPUSCULAR VOLUME 92.8 fl (80.0-96.0); MONO # 0.7 10^3/uL (0.0-0.8); MONO % 7.3 % (2.0-8.0); NEUTROPHILS # 7.7 10^3/uL (1.5-8.5); PLATELET COUNT, AUTOMATED 215 10^3/uL (150-450); RED BLOOD COUNT 4.31 10^6/uL (4.30-6.10); WHITE BLOOD COUNT 9.7 10^3/uL (4.0-10.0)
[2024-06-06] MEDS: IPRATROPIUM 0.5MG/ALBUTEROL 2.5MG INH SOL UD 3ML (DUONEB) NEB ONE (16:34)
[2024-06-06 16:42] LABS: BLOOD UREA NITROGEN 18 MG/DL (9-23); CALCIUM LEVEL 9.2 MG/DL (8.5-10.1); CARBON DIOXIDE LEVEL 19 MMOL/L (20-31); CHLORIDE LEVEL 105 MMOL/L (98-107); CREATININE FOR GFR 0.82 MG/DL (0.70-1.30); GLOMERULAR FILTRATION RATE > 60.0 (>56); GLUCOSE, FASTING 100 MG/DL (60-100); POTASSIUM SERUM 3.3 MMOL/L (3.5-5.1); SODIUM LEVEL 135 MMOL/L (136-145)
[2024-06-06 16:57] LABS: ALBUMIN 3.5 G/DL (3.2-5.2); ALKALINE PHOSPHATASE 83 U/L (46-116); ALT/SGPT 17 U/L (7.0-40); AST/SGOT 22 U/L (<34); BILIRUBIN,DIRECT 0.3 MG/DL (<0.4); BILIRUBIN,TOTAL 0.8 MG/DL (0.3-1.2); TOTAL PROTEIN 7.2 G/DL (5.7-8.2)
[2024-06-06] MEDS ORDERED: PRED20TA PO (17:00)
[2024-06-06] MEDS ORDERED: ALBU2.5V10 NEB (17:00)
[2024-06-06 17:45] VITALS: BP 126/75; TEMP 100.2; O2SAT 97
[2024-06-06] MEDS: predniSONE 20 MG TAB PO ONE (17:45)
[2024-06-06] MEDS: POTASSIUM CHLORIDE 10MEQ SR TABLET PO ONE (17:46)
== END 2024-06-06 17:58 | disposition home or self-care (01) ==
LOC: EDBD 15:18 → M ED 15:18
DX: J06.9 Acute upper respiratory infection, unspecified (principal); B34.1 Enterovirus infection, unspecified; B34.8 Other viral infections of unspecified site; I10 Essential (primary) hypertension; F17.200 Nicotine dependence, unspecified, uncomplicated; Z79.52 Long term (current) use of systemic steroids; Z79.811 Long term (current) use of aromatase inhibitors; Z79.83 Long term (current) use of bisphosphonates; Z79.899 Other long term (current) drug therapy
CPT/HCPCS: 36415; 71045; 80048; 80076; 83605; 85025; 87040; 87486; 87581; 87633; 87798; 93005; 93041; 94640; 94760; 99285; J7512

== ENCOUNTER 2024-06-13 12:02 | Emergency (ER) | payer OTHER ==
[~2024-06-13] VITALS: Ht 177.8 cm; Wt 72.7 kg
[~2024-06-13 12:02] MED LIST changes: +ALBU2.5V10 NEB; +CEPH500C PO; +POTA-151 PO
[2024-06-13 12:13] VITALS: TEMP 99.5
[2024-06-13 12:39] LABS: BASO % 0.3 % (0.0-1.0); EOS # 0.1 10^3/uL (0.0-0.5); EOS % 1.3 % (0.0-3.0); HEMATOCRIT 34.1 % (42.0-52.0); LYMPH # 1.3 10^3/uL (1.5-5.0); LYMPH % 13.5 % (24.0-44.0); MEAN CORPUSCULAR HEMOGLOBIN 32.8 pg (27.0-33.0); MEAN CORPUSCULAR HGB CONC 35.2 g/dl (32.0-36.5); MEAN CORPUSCULAR VOLUME 93.2 fl (80.0-96.0); MONO # 0.5 10^3/uL (0.0-0.8); MONO % 5.2 % (2.0-8.0); NEUTROPHILS # 7.6 10^3/uL (1.5-8.5); NEUTROPHILS % 78.8 % (36.0-66.0); PLATELET COUNT, AUTOMATED 333 10^3/uL (150-450); RED BLOOD COUNT 3.66 10^6/uL (4.30-6.10); WHITE BLOOD COUNT 9.7 10^3/uL (4.0-10.0)
[2024-06-13 13:15] LABS: ALBUMIN 2.8 G/DL (3.2-5.2); ALKALINE PHOSPHATASE 89 U/L (46-116); ALT/SGPT 44 U/L (7.0-40); AST/SGOT 27 U/L (<34); BILIRUBIN,DIRECT 0.2 MG/DL (<0.4); BILIRUBIN,TOTAL 0.6 MG/DL (0.3-1.2); BLOOD UREA NITROGEN 13 MG/DL (9-23); CALCIUM LEVEL 8.1 MG/DL (8.5-10.1); CARBON DIOXIDE LEVEL 27 MMOL/L (20-31); CHLORIDE LEVEL 108 MMOL/L (98-107); CREATININE FOR GFR 0.74 MG/DL (0.70-1.30); GLOMERULAR FILTRATION RATE > 60.0 (>56); GLUCOSE, FASTING 52 MG/DL (60-100); POTASSIUM SERUM 3.4 MMOL/L (3.5-5.1); SODIUM LEVEL 138 MMOL/L (136-145); TOTAL PROTEIN 5.8 G/DL (5.7-8.2)
[2024-06-13] MEDS: BENZONATATE 100MG CAPSULE PO ONE (14:43)
[2024-06-13] MEDS: ACETAMINOPHEN 325 MG TAB PO ONE (14:43)
[2024-06-13 15:29] VITALS: O2SAT 95
[2024-06-13 17:33] VITALS: BP 107/72; O2SAT 95
[2024-06-13] MEDS ORDERED: AMOX875T2 PO (17:46)
[2024-06-13] MEDS ORDERED: DOXY-441 PO (17:47)
[2024-06-13] MEDS ORDERED: PSEU30TA87 PO (17:47)
== END 2024-06-13 18:00 | disposition home or self-care (01) ==
LOC: EDBD 12:02 → M ED 12:02
DX: J18.9 Pneumonia, unspecified organism (principal); B34.1 Enterovirus infection, unspecified; B34.8 Other viral infections of unspecified site; H66.93 Otitis media, unspecified, bilateral; I10 Essential (primary) hypertension; J45.909 Unspecified asthma, uncomplicated; K21.9 Gastro-esophageal reflux disease without esophagitis; Z79.52 Long term (current) use of systemic steroids; Z79.2 Long term (current) use of antibiotics; Z79.811 Long term (current) use of aromatase inhibitors; Z79.899 Other long term (current) drug therapy

== ENCOUNTER → 2024-09-05 | Outpatient (CLI) | payer OTHER ==
[~2024-09-05] MED LIST changes: +AMOX875T2 PO; +DOXY-441 PO; +ISOVUE-370 76% 100ML VIAL As Ordered ONE; +PSEU30TA87 PO
== END ==
LOC: M RAD 08:24
PROVIDERS: ATTEND Specialist
DX: C15.9 Malignant neoplasm of esophagus, unspecified (principal); J98.11 Atelectasis; J84.10 Pulmonary fibrosis, unspecified; I25.10 Atherosclerotic heart disease of native coronary artery without angina pectoris; I70.0 Atherosclerosis of aorta; K76.89 Other specified diseases of liver
CPT/HCPCS: 71260; Q9967

== ENCOUNTER 2024-09-20 18:02 | Emergency (ER) | payer OTHER ==
[~2024-09-20] VITALS: Ht 175.3 cm; Wt 75.6 kg
[~2024-09-20 18:02] MED LIST changes: -ISOVUE-370 76% 100ML VIAL As Ordered ONE
[2024-09-20 21:43] LABS: BASO # 0.1 10^3/uL (0.0-0.2); EOS # 0.5 10^3/uL (0.0-0.5); EOS % 11.2 % (0.0-3.0); HEMATOCRIT 35.9 % (42.0-52.0); HEMOGLOBIN 12.5 g/dl (13.5-17.5); LYMPH # 1.2 10^3/uL (1.5-5.0); MEAN CORPUSCULAR HEMOGLOBIN 33.1 pg (27.0-33.0); MEAN CORPUSCULAR HGB CONC 34.8 g/dl (32.0-36.5); MONO # 0.4 10^3/uL (0.0-0.8); MONO % 9.5 % (2.0-8.0); NEUTROPHILS # 2.3 10^3/uL (1.5-8.5); NEUTROPHILS % 51.1 % (36.0-66.0); PLATELET COUNT, AUTOMATED 215 10^3/uL (150-450); RED BLOOD COUNT 3.78 10^6/uL (4.30-6.10); WHITE BLOOD COUNT 4.5 10^3/uL (4.0-10.0)
[2024-09-20 22:11] LABS: ALBUMIN 3.1 G/DL (3.2-5.2); ALKALINE PHOSPHATASE 72 U/L (40-129); ALT/SGPT 15 U/L (7.0-40); AST/SGOT 12 U/L (<34); BILIRUBIN,DIRECT 0.1 MG/DL (<0.4); BILIRUBIN,TOTAL 0.4 MG/DL (0.3-1.2); BLOOD UREA NITROGEN 12 MG/DL (9-23); CARBON DIOXIDE LEVEL 22 MMOL/L (20-31); CHLORIDE LEVEL 115 MMOL/L (98-107); CREATININE FOR GFR 0.79 MG/DL (0.70-1.30); GLOMERULAR FILTRATION RATE > 60.0 (>56); GLUCOSE, FASTING 85 MG/DL (60-100); POTASSIUM SERUM 3.5 MMOL/L (3.5-5.1); SODIUM LEVEL 143 MMOL/L (136-145); TOTAL PROTEIN 5.8 G/DL (5.7-8.2)
[2024-09-20] MEDS ORDERED: ISOVUE-370 76% 100ML VIAL As Ordered ONE (22:23)
[2024-09-21] MEDS: IPRATROPIUM 0.5MG/ALBUTEROL 2.5MG INH SOL UD 3ML (DUONEB) NEB ONE (00:04)
[2024-09-21 00:16] LABS: CK-MB VALUE MASS < 1.0 NG/ML (<3.6)
[2024-09-21 00:20] LABS: FREE T4 1.05 NG/DL (0.89-1.76); THYROID STIMULATING HORMONE 0.403 uIU/ML (0.55-4.78)
[2024-09-21 00:23] LABS: CPK CREATINE PHOSPHOKINASE 87 U/L (46-171); MB/CK RELATIVE INDEX 1.14 (< OR =4)
[2024-09-21 00:45] VITALS: BP 110/58; TEMP 97; O2SAT 97
[2024-09-21] MEDS ORDERED: IPRA0.00 INH (00:48)
== END 2024-09-21 00:55 | disposition home or self-care (01) ==
LOC: M ED 18:02
DX: R06.02 Shortness of breath (principal); J45.909 Unspecified asthma, uncomplicated; D64.9 Anemia, unspecified; R53.83 Other fatigue; I45.81 Long QT syndrome; I49.1 Atrial premature depolarization; I10 Essential (primary) hypertension; K21.9 Gastro-esophageal reflux disease without esophagitis; F41.9 Anxiety disorder, unspecified; Z87.891 Personal history of nicotine dependence; Z79.52 Long term (current) use of systemic steroids; Z79.811 Long term (current) use of aromatase inhibitors; Z79.899 Other long term (current) drug therapy
CPT/HCPCS: 36415; 71046; 71275; 80048; 80076; 82550; 82553; 83605; 83880; 84439; 84443; 84484; 85025; 87486; 87581; 87633; 87798; 93005; 94010; 94640; 99285; Q9967

== ENCOUNTER → 2024-10-02 | Outpatient (CLI) | payer OTHER ==
[~2024-10-02] MED LIST changes: +IPRA0.00 INH; +ISOVUE-370 76% 100ML VIAL ONE
== END ==
LOC: M PLAIMG 08:52
PROVIDERS: ATTEND Internal Medicine Hematology & Oncology
DX: C15.9 Malignant neoplasm of esophagus, unspecified (principal); N28.1 Cyst of kidney, acquired; K76.89 Other specified diseases of liver
CPT/HCPCS: 74177; Q9967

== ENCOUNTER → 2024-10-07 | Outpatient (CLI) | payer OTHER ==
[~2024-10-07] VITALS: Ht 175 cm; Wt 70.0 kg
[~2024-10-07] MED LIST changes: -ISOVUE-370 76% 100ML VIAL ONE; +LIDOCAINE 1% MDV 20ML VIAL As Ordered ONE; +MIDAZOLAM INJ 2MG/2ML VIAL As Ordered ONE; +fentaNYL 100 MCG/2 ML INJECTION As Ordered ONE
[2024-10-07 10:25] VITALS: TEMP 98.8
[2024-10-07] MEDS: ceFAZolin SOD 2 GM in IV 1 EA IV ONE (10:36)
[2024-10-07] MEDS: NS (Normal Saline) 0.9% 1,000 ML IV SCH (10:50)
[2024-10-07] MEDS: MIDAZOLAM INJ 2MG/2ML VIAL IV ONE (10:58)
[2024-10-07] MEDS: LIDOCAINE 1% MDV 20ML VIAL SC ONE (10:58)
[2024-10-07] MEDS: fentaNYL 100 MCG/2 ML INJECTION IV ONE (10:58)
[2024-10-07 11:35] VITALS: BP 126/70; O2SAT 98
== END ==
LOC: M IRPRO 10:12
PROVIDERS: ATTEND Specialist
DX: C15.5 Malignant neoplasm of lower third of esophagus (principal)
CPT/HCPCS: 36590; 99152; J0690; J2250; J3010

== ENCOUNTER 2024-10-28 11:50 | Emergency (ER) | payer OTHER ==
[~2024-10-28] VITALS: Ht 175.3 cm; Wt 77.2 kg
[~2024-10-28 11:50] MED LIST changes: -LIDOCAINE 1% MDV 20ML VIAL As Ordered ONE; -MIDAZOLAM INJ 2MG/2ML VIAL As Ordered ONE; -fentaNYL 100 MCG/2 ML INJECTION As Ordered ONE
[2024-10-28 11:52] VITALS: TEMP 98.5
[2024-10-28] MEDS: METHOCARBAMOL 1,000 MG/10 ML VIAL IV ONE (17:46)
[2024-10-28] MEDS: KETOROLAC 30 MG/ML 1ML VIAL IV ONE (17:46)
[2024-10-28] MEDS: ACETAMINOPHEN 500 MG TAB PO ONE (18:55)
[2024-10-28] MEDS: LIDOCAINE 5% (LIDODERM) PATCH TD ONE (18:55)
[2024-10-28] MEDS ORDERED: METH-1165 PO (19:12)
[2024-10-28 19:25] VITALS: BP 124/72; O2SAT 99
== END 2024-10-28 19:26 | disposition home or self-care (01) ==
LOC: M ED 11:50
DX: M54.50 Low back pain, unspecified (principal); M62.830 Muscle spasm of back; I10 Essential (primary) hypertension; C15.9 Malignant neoplasm of esophagus, unspecified; Z79.52 Long term (current) use of systemic steroids; Z79.899 Other long term (current) drug therapy
CPT/HCPCS: 72110; 96374; 96375; 99284; J1100; J1885; J2800

== ENCOUNTER → 2025-04-16 | Outpatient (REF) | payer OTHER ==
[~2025-04-16] MED LIST changes: +FLUO1TAB4 PO; -FLUO20TA28 PO; +METH-1165 PO
== END ==
LOC: M SFHCADAM 13:09
PROVIDERS: ATTEND Physician Assistant
DX: J22 Unspecified acute lower respiratory infection (principal)

== ENCOUNTER → 2025-04-18 | Outpatient (CLI) | payer OTHER ==
[~2025-04-18] MED LIST changes: -IBUP-1022 PO; +IBUP600T42 PO; +ISOVUE-370 76% 100 ML VIAL As Ordered ONE
== END ==
LOC: M RAD 08:47
PROVIDERS: ATTEND Specialist
DX: C15.9 Malignant neoplasm of esophagus, unspecified (principal); K76.0 Fatty (change of) liver, not elsewhere classified; K76.89 Other specified diseases of liver; N28.1 Cyst of kidney, acquired
CPT/HCPCS: 71260; 74177; Q9967

== ENCOUNTER 2025-08-27 06:09 | Day surgery (SDC) | payer OTHER ==
[~2025-08-27] VITALS: Ht 175.3 cm; Wt 78.4 kg
[~2025-08-27 06:09] MED LIST changes: +HEPARIN SOD 5000 UNITS/ML 1 ML VIAL/SYRINGE SQ ONE; -ISOVUE-370 76% 100 ML VIAL As Ordered ONE; +LORA-243 PO; +ceFAZolin SOD 2 GM IV ONCE IV ONE
[2025-08-27] MEDS: LR 1,000 ML IV SCH (06:40)
[2025-08-27] MEDS ORDERED: LIDOCAINE 2% 100 MG/5 ML SDV (FOR ANES.) As Ordered ONE (07:31)
[2025-08-27] MEDS ORDERED: ONDANSETRON 4MG/2ML VIAL As Ordered ONE (07:31)
[2025-08-27] MEDS ORDERED: ROCURONIUM BROMIDE 50MG/5ML VIAL As Ordered ONE (07:31)
[2025-08-27] MEDS ORDERED: dexmedeTOMIDine (4 MCG/ML) 200 MCG/50 ML BTL As Ordered ONE (07:32)
[2025-08-27] MEDS ORDERED: dexAMETHasone 4 MG/ML 1 ML VIAL As Ordered ONE (07:32)
[2025-08-27] MEDS ORDERED: MIDAZOLAM INJ 2 MG/2 ML VIAL As Ordered ONE (07:32)
[2025-08-27] MEDS ORDERED: ACETAMINOPHEN 1000MG/100ML IV BAG As Ordered ONE (09:04)
[2025-08-27] MEDS: ceFAZolin SOD 2 GM IV ONCE IV ONE (09:27)
[2025-08-27] MEDS: HEPARIN SOD 5000 UNITS/ML 1 ML VIAL/SYRINGE SQ ONE (09:29)
[2025-08-27] MEDS ORDERED: PHENYLephrine 500MCG 5ML (100MCG/ML) SYRINGE As Ordered ONE (10:05)
[2025-08-27] MEDS ORDERED: SUGAMMADEX SODIUM 500 MG/5 ML VIAL As Ordered ONE (10:06)
[2025-08-27] MEDS ORDERED: HYDROMORPHONE HCL 0.5 MG/0.5 ML SYRINGE IV PRN (11:20)
[2025-08-27] MEDS ORDERED: ONDANSETRON 4MG/2ML VIAL IV PRN (11:20)
[2025-08-27] MEDS ORDERED: MORPHINE 2 MG/ML 1 ML VIAL IV PRN (11:20)
[2025-08-27 12:31] VITALS: BP 123/78; TEMP 97; O2SAT 96
== END 2025-08-27 13:20 | disposition home or self-care (01) ==
LOC: M SDC 06:09
PROVIDERS: ATTEND Surgery
DX: K40.90 Unilateral inguinal hernia, without obstruction or gangrene, not specified as recurrent (principal); I10 Essential (primary) hypertension; J45.909 Unspecified asthma, uncomplicated; K21.9 Gastro-esophageal reflux disease without esophagitis; F41.9 Anxiety disorder, unspecified; Z79.899 Other long term (current) drug therapy; Z85.01 Personal history of malignant neoplasm of esophagus; Z92.3 Personal history of irradiation; Z87.891 Personal history of nicotine dependence; Z90.49 Acquired absence of other specified parts of digestive tract; Z90.89 Acquired absence of other organs
CPT/HCPCS: 49650; C1781; J0131; J0665; J0688; J1100; J2250; J2371; J2405; J3010; S2900